=== PATIENT | male | born 1980 | race American Indian/Alaskan Native ===

== ENCOUNTER 2021-07-21 06:19 | Emergency (ER) | payer OTHER ==
[2021-07-21] MEDS ORDERED: KETOROLAC 10 MG TAB PO ONE (09:58)
[2021-07-21] MEDS ORDERED: DEXAMETHASONE 4 MG TAB PO ONE (09:58)
--- NOTE | 2021-07-21 09:58 | Emergency Department Report ---
ED General Adult HPI - General Chief complaint: Extremity Problem,Nontraumatic Stated complaint: MUSCLE SPASMS Time Seen by Provider: 07/21/21 09:32 Source: patient Mode of arrival: Ambulatory Limitations: No Limitations - History of Present Illness Initial comments: 40-year-old male with a past medical history of hypertension and tobacco use presents to the ER today with complaints of left arm pain. Patient states that symptoms started 3 days ago. He described as an achy pain in his left shoulder, left upper arm that radiates into his left neck. He states that the pain has been intermittent. Reports increasing pain to his left neck left shoulder with movement of his neck, and movement of his left upper arm. States sometimes he feels a little numbness in his fingers, but no upper extremity weakness, and he denies any chest pain or shortness of breath. He denies any nausea or vomiting. He denies any vision change, slurred speech or facial weakness. He reports no headache or dizziness. He denies any particular injury but states that his job requires a lot of physical strenuous activity. He denies any swelling to his arm or any skin discoloration. MD Complaint: Left arm pain -: days(s) (3) Severity scale (0 -10): 10 - Related Data Previous Rx's Medication Instructions Recorded Last Taken Type Ibuprofen [Motrin] 600 mg PO Q8H PRN #30 tablet 07/21/21 Unknown Rx methOCARBAMOL [Robaxin TAB] 750 mg PO Q8H PRN #30 tablet 07/21/21 Unknown Rx methylPREDNISolone [Medrol 4MG 4 mg PO DAILY #1 tab.ds.pk 07/21/21 Unknown Rx DOSEPAK (21 tabs)] Allergies Allergy/AdvReac Type Severity Reaction Status Date / Time No Known Allergies Allergy Verified 02/18/16 07:21 ED Review of Systems ROS: Stated complaint: MUSCLE SPASMS Other details as noted in HPI ED Past Medical Hx - Past Medical History Additional medical history: Dizzy, N&V - Social History Smoking Status: Current Every Day Smoker Substance Use Type: Alcohol - Medications Home Medications: Home Medications Medication Instructions Recorded Confirmed Last Taken Type Ibuprofen [Motrin] 600 mg PO Q8H PRN #30 tablet 07/21/21 Unknown Rx methOCARBAMOL [Robaxin TAB] 750 mg PO Q8H PRN #30 tablet 07/21/21 Unknown Rx methylPREDNISolone [Medrol 4MG 4 mg PO DAILY #1 tab.ds.pk 07/21/21 Unknown Rx DOSEPAK (21 tabs)] ED Physical Exam - General Limitations: No Limitations ED Course Vital Signs 07/21/21 07/21/21 07:10 12:09 Temperature 97.8 F 97.2 F L Pulse Rate 80 80 Respiratory 18 16 Rate Blood Pressure 130/102 126/78 [Right] O2 Sat by Pulse 100 100 Oximetry ED Medical Decision Making - EKG Data EKG shows normal: sinus rhythm Rate: normal (67) - EKG Data Interpretation: normal EKG - Radiology Data Radiology results: report reviewed Patient: TRENT SOTOMAYOR MR#: [id number] : 1980 Acct:[id number] Age/Sex: 40 / M ADM Date: 07/21/21 Loc: ED Attending Dr: Ordering Physician: SARAH MARSHALL Date of Service: 07/21/21 Procedure(s): XR shoulder 2+V LT Accession Number(s): [id number] cc: SARAH MARSHALL Fluoro Time In Minutes: XR shoulder 2+V LT INDICATION / CLINICAL INFORMATION: Left shoulder pain/radiculopathy. COMPARISON: None available. FINDINGS: BONES/JOINT(S): No acute fracture or subluxation. No significant degenerative changes. Persistent os acromiale is noted. SOFT TISSUES: No significant abnormality. ADDITIONAL FINDINGS: None. Signer Name: Michael Felipe MD Signed: 07/21/2021 10:32 AM Workstation Name: [id number] Transcribed By: HAFSA Dictated By: Michael Felipe MD Electronically Authenticated By: Michael Felipe MD Signed Date/Time: 07/21/21 1032 DD/ 1032 TD/TT: Patient: TRENT SOTOMAYOR MR#: [id number] : 1980 Acct:[id number] Age/Sex: 40 / M ADM Date: 07/21/21 Loc: ED Attending Dr: Ordering Physician: SARAH MARSHALL Date of Service: 07/21/21 Procedure(s): XR spine cervical 2-3V Accession Number(s): [id number] cc: SARAH Solano Time In Minutes: XR spine cervical 2-3V INDICATION / CLINICAL INFORMATION: left neck pain; radiculopathy. COMPARISON: None available. FINDINGS: BONES/JOINT(S): No acute fracture or subluxation. Moderate degenerative disc disease at C5-6. SOFT TISSUES: No significant abnormality. ADDITIONAL FINDINGS: None. Signer Name: Michael Felipe MD Signed: 07/21/2021 11:44 AM Workstation Name: [id number] Transcribed By: HAFSA Dictated By: Michael Felipe MD Electronically Authenticated By: Michael Felipe MD Signed Date/Time: 07/21/21 114 DD/ 43 TD/TT: - Medical Decision Making EKG shows normal sinus rhythm without any signs of STEMI, acute ischemic changes or significant dysrhythmia. Troponin is negative. X-ray of the shoulder unremarkable. X-ray of the cervical spine shows degenerative disc disease but otherwise nothing else acute. Patient history and exam and current condition does not suggest a stroke, unstable angina, compartment syndrome, acute arterial occlusion in the right upper arm, DVT, or any other emergent conditions warranting additional testing, specialist consult or admission at this time. I do suspect that his symptoms are likely related to cervical radiculopathy especially given the degenerative changes on x-ray. Discussed all results with patient. He is currently not toxic not ill-appearing and not in any acute distress. He is neurologically intact with a normal gait. His repeat blood pressure has improved and the remaining vitals are stable. Discussed suspected diagnosis with patient. He will be given referral information to local orthopedic doctor for further evaluation or he can follow-up with his primary care doctor. In the meantime he will be given medication to help with symptoms and be taken out of work for couple days. Patient expressed understanding of all instructions and agree with plan. Patient stable at time of discharge. Critical care attestation.: If time is entered above; I have spent that time in minutes in the direct care of this critically ill patient, excluding procedure time. ED Disposition Clinical Impression: Left shoulder pain, Cervical radicular pain Disposition: HOME / SELF CARE / HOMELESS Is pt being admited?: No Does the pt Need Aspirin: No Condition: Stable Instructions: Shoulder Pain, Cervical Radiculopathy, [id number] Additional Instructions: Recommend that you take the Medrol Dosepak, and the ibuprofen as prescribed to help with your pain. I also recommend taking the Robaxin which is a muscle relaxer as prescribed. I suspect the pain could be coming from your neck, and or even your left shoulder and I recommend that you follow-up with program management specialist listed in your discharge instructions for further evaluation including an MRI. Return to the ER if your symptoms worsens or changes in any way. Prescriptions: methylPREDNISolone [Medrol 4MG DOSEPAK (21 tabs)] 4 mg PO DAILY #1 tab.ds.pk Ibuprofen [Motrin] 600 mg PO Q8H PRN #30 tablet PRN Reason: Pain methOCARBAMOL [Robaxin TAB] 750 mg PO Q8H PRN #30 tablet PRN Reason: Muscle Spasm Referrals: NENITA HOOVER FNP-C [Primary Care Provider] - 3-5 Days Forms: Work/School Release Form(ED) Time of Disposition: 11:56
--- NOTE | 2021-07-21 10:37 | XRay Report ---
XR shoulder 2+V LT INDICATION / CLINICAL INFORMATION: Left shoulder pain/radiculopathy. COMPARISON: None available. FINDINGS: BONES/JOINT(S): No acute fracture or subluxation. No significant degenerative changes. Persistent os acromiale is noted. SOFT TISSUES: No significant abnormality. ADDITIONAL FINDINGS: None. Signer Name: Michael Felipe MD Signed: 07/21/2021 10:32 AM Workstation Name: [id number]
--- NOTE | 2021-07-21 11:48 | XRay Report ---
XR spine cervical 2-3V INDICATION / CLINICAL INFORMATION: left neck pain; radiculopathy. COMPARISON: None available. FINDINGS: BONES/JOINT(S): No acute fracture or subluxation. Moderate degenerative disc disease at C5-6. SOFT TISSUES: No significant abnormality. ADDITIONAL FINDINGS: None. Signer Name: Michael Felipe MD Signed: 07/21/2021 11:44 AM Workstation Name: [id number]
[2021-07-21 12:11] VITALS: BP 126/78
--- NOTE | 2021-07-21 13:33 | Electrocardiograph Report ---
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
== END 2021-07-21 12:15 | disposition home or self-care (01) ==
LOC: ED 06:19
DX: M25.512 Pain in left shoulder (principal); M54.2 Cervicalgia; F17.200 Nicotine dependence, unspecified, uncomplicated; Z72.89 Other problems related to lifestyle; Z79.899 Other long term (current) drug therapy
CPT/HCPCS: 36415; 72040; 73030; 84484; 93005; 99284; J8540